=== PATIENT | female | born 1950 | race Hispanic/Latino ===

== ENCOUNTER → 2017-12-05 | Day surgery (SDC) | payer OTHER ==
[~2017-12-05] VITALS: Ht 149.9 cm; Wt 68.9 kg
--- NOTE | 2017-12-05 12:44 | Operative Report ---
Operative/Inv Procedure Report Surgery Date: 12/05/17 Name of Procedure: Left ring finger flexor tenosynovectomy and A1 marleny excision (trigger release) . Pre-Operative Diagnosis: Stenosing flexor tenosynovitis left ring finger (left ring trigger finger). Post-Operative Diagnosis: Same. Estimated Blood Loss: scant Surgeon/Framing And Hanging: Luis Cheema MD/none. Anesthesia: laryngeal mask airway Monitors: EKG/blood pressure/oxygen saturation. IV Fluids: Lactated Ringer's. Implants: None. Urine Output: None. Drains: None. Specimens: None. Microbiology: None. Tourniquet: 8 minutes at 250 mmHg. Complications: None known. Condition: Stable. Operative Indication: The patient is a 67-year-old female with a history of prior trigger digits but I believe ultimately 1 of which did require surgical intervention after failing conservative management with flexor tendon sheath steroid injections to the finger. The patient started to develop symptoms in the left ring finger somewhat more than 1 year ago. This consisted of pain and some mechanical symptoms again. She saw me during the summer with these complaints. We did discuss the risks and benefits and expected outcomes of nonoperative, noninterventional management with oral and topical medications along with modalities and activity modification and possibly some hand therapy. We did discuss limited intervention with steroid injection to the flexor tendon sheath. Lastly, we did discuss the same with respect to surgical intervention with flexor tenosynovectomy and A1 marleny release (trigger finger release) for likely most definitive treatment of the trigger finger. All of the patient's questions were answered at length. After discussion of her options and given her prior history with prior trigger digits she did decide that she had no interest in pursuing anything that would be nonoperative and instead she wanted to move directly forward with surgical management of the condition with a trigger finger release. Surgical consent was obtained. Operative/Procedure Note Note: The patient was brought to the operating room and placed on the operating table in the supine position. General anesthesia via LMA was induced by the anesthesiologist. A dose of IV antibiotics were given for infection prophylaxis. All bony prominences were well-padded. We next applied a well- padded tourniquet to the proximal portion of the left arm. Both legs were placed into a calf compression sleeve to hopefully cut down on risk of bilateral lower extremity venous pooling and blood clot formation and propagation. With the patient now under general anesthesia with IV antibiotics on board the left upper extremity was then prepped and draped in usual sterile fashion. The patient's left palm was marked for a palmar approach to the A1 marleny of the flexor tendon sheath of the ring finger. My preference is to use the patient's natural skin creases where possible. In this case the patient had a slightly oblique longitudinal skin crease running and a distal ulnar to proximal radial direction that seemed to fit this criteria. The skin over the skin crease was marked with a skin marker. The extremity was then exsanguinated and pneumatic tourniquet was inflated to a pressure of 250 mmHg. The skin incision was created sharply with a scalpel. The subcutaneous tissues were spread with blunt tipped scissors. Retractors were placed into the wound for visualization and to help avoid neurovascular injury to the neurovascular bundles to either side of the flexor tendon sheath. After repositioning retractors we did have visualization of the flexor tendons entering the A1 marleny and proximal aspect of the flexor tendon sheath. The sheath itself did not appear markedly stenotic. There was; however moderate tenosynovitis with increased fluid about the flexor tendons. A freer elevator was placed under the proximal aspect of the A1 marleny and directed under the marleny but over the flexor tendons in a proximal to distal direction. This was placed to help protect the tendons with excising the A1 marleny sharply with a scalpel. The A1 marleny was then in fact excised sharply with a scalpel under direct visualization while protecting the flexor tendons with the [place] elevator underneath the marleny. After the marleny was adequately excised we pulled each of the tendons from the wound for inspection. There was some inflamed flexor tenosynovial tissue wrapping around both tendons more towards the proximal aspect of the wound. A limited flexor tenosynovectomy of the flexor tendons proximally was performed. The tendons were otherwise in excellent condition. The tendons were allowed to retract back into the wound. The finger was flexed and extended passively and I appreciated no passive sense of catching or crepitus of the finger with tendon excursion. The wound was irrigated several times with saline. Attention was now directed towards closure. The skin and superficial subcutaneous tissues were infiltrated with some quarter percent Marcaine without epinephrine to help with prolonged postoperative pain relief. The tourniquet was deflated. Hemostasis was achieved with a combination of manual pressure and electrocautery. The soft tissue repair consisted of direct approximation of the skin margins in side to side fashion using 3-0 Prolene placed in simple fashion. The wound was washed and dried again. Adaptic dressing was placed over the suture line followed by sterile gauze dressings which were held in place with sterile gauze wrap. This was overwrapped with an Juan bandage to hold the gauze dressings in place as well as to provide some gentle postoperative compression to the palmar wound. The drapes were taken down. The left upper extremity was placed into a Zack pillow for elevation. The patient was awakened from general anesthesia. She was transferred to the stretcher and brought to the recovery room in stable condition having tolerated the procedure well.
== END ==
LOC: STS 11-28 07:00
DX: M65.342 Trigger finger, left ring finger (principal); I10 Essential (primary) hypertension; E03.9 Hypothyroidism, unspecified; I34.1 Nonrheumatic mitral (valve) prolapse; K21.9 Gastro-esophageal reflux disease without esophagitis
CPT/HCPCS: J0690; J2250